=== PATIENT | female | born 1965 | race Caucasian/White ===

== ENCOUNTER → 2017-12-03 | Outpatient (CLI) | payer OTHER ==
--- NOTE | 2017-12-03 14:31 | RAD ---
Left axillary ultrasound, 12/03/2017: HISTORY: Lump The area of clinical concern was carefully scanned. A single oval-shaped nodule is identified measuring 9 x 12 x 26 mm. Its margins are smooth. It demonstrates a prominent echogenic hilum most compatible with a lymph node. By short axis dimension at is considered to be at the upper limits of normal in size. No definite pathologic infiltration is seen. No other left axillary adenopathy is evident. IMPRESSION: Mildly prominent left axillary lymph node which does not demonstrate definite pathologic features. Clinical surveillance is suggested. Mammographic correlation may also be helpful. The patient reports that she does undergo routine mammography at a different institution. Electronically signed by: Zach Byrd MD (12/03/2017 2:27 PM) [facility]
== END | disposition home or self-care (01) ==
LOC: US 13:42
PROVIDERS: ATTEND Nurse Practitioner Family
DX: R59.0 Localized enlarged lymph nodes (principal)
CPT/HCPCS: 76641